=== PATIENT | male | born 1965 | race Caucasian/White ===

== ENCOUNTER 2016-09-29 07:35 | Emergency (ER) | payer OTHER ==
[~2016-09-29] VITALS: Wt 75.0 kg
[2016-09-29] MEDS ORDERED: ONDANSETRON 4 MG INJ IV STA (08:01)
[2016-09-29] MEDS ORDERED: morphine 4 MG/ML VIAL IV STA ×2 (08:01→12:14)
[2016-09-29] MEDS ORDERED: SOD CHLORIDE 0.9% 1,000 ML IV STA (08:01)
--- NOTE | 2016-09-29 08:28 | ERD ---
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 Patient states that he has had a couple episodes of vomiting since this morning as well. He complains of nausea and loose stools. Patient denies any fevers. Patient states that he has not had alcohol for 2 weeks. Patient states that he was recently hospitalized on September 26 at [facility] for exacerbation of chronic pancreatitis last week, patient stayed in the hospital for three days an released on . Patient denies taking any medications today. Patient states that he usually takes Humalog and Lantus for his diabetes however he did not take any today. Patient has a history of cholecystectomy 4 months ago ROS All systems reviewed and are negative except as per history of present illness. Medications Home Meds Active Scripts Ondansetron (Ondansetron Odt) 4 Mg Tab.rapdis, 4 MG PO Q6H Y for NAUSEA AND/OR VOMITING, #14 TAB Prov:VIDAL HOLGUIN PA-C 09/29/16 Naproxen* (Naproxen*) 500 Mg Tablet, 500 MG PO BID Y for PAIN, #20 TAB Prov:VIDAL HOLGUIN PA-C 09/29/16 Famotidine* (Famotidine*) 20 Mg Tablet, 20 MG PO BID, #60 TAB Prov:VIDAL HOLGUIN PA-C 09/29/16 Calcium Carbonate/Simethicone (Maalox Advanced Tab Chew) 1 Each Tab.chew, 1 EACH PO BID, #30 TAB.CHEW Prov:VIDAL HOLGUIN PA-C 09/29/16 Physical Exam Vitals Vital Signs Date Time Temp Pulse Resp B/P Pulse Ox O2 Delivery O2 Flow Rate FiO2 09/29/16 12:26 98.0 78 20 140/89 99 Room Air 09/29/16 07:45 98.0 98 20 136/92 98 Physical Exam GENERAL: well-developed/well-nourished, in no apparent distress, non-toxic appearing HENT: NC/AT, moist mucous membranes EYES: Conjunctiva normal NECK: Supple, no lymphadenopathy PULM: CTA bilaterally, no rales, rhonchi, or wheezing heard CV: Normal S1S2, RRR, good capillary refill GI: Soft, non-distended, tender to palpation in epigastric region and right upper quadrant Normal bowel sounds, no masses or organomegaly felt on exam No gross peritonitis, no bruits Negative Rovsing, negative Gallo, negative McBurney's point, Negative CVAT BACK: No masses EXT: No clubbing, cyanosis, or edema NEURO: Alert and Orientated SKIN: Intact, normal turgor PSYCH: Normal mood and mentation Result Diagram: 09/29/1682409/29/1625 Results 24 hrs Laboratory Tests Test 09/29/16 08:25 09/29/16 10:05 09/29/16 10:36 09/29/16 12:33 Alanine Aminotransferase (ALT/SGPT) 127IU/L Albumin 4.8g/dl Albumin/Globulin Ratio 1.09 Alkaline Phosphatase 803IU/L Anion Gap 21 Aspartate Amino Transf (AST/SGOT) 153IU/L Basophils # 0.110^3/ul Basophils % 0.9% Blood Morphology Comment Blood Urea Nitrogen 14mg/dl Calcium Level 10.4mg/dl Carbon Dioxide Level 28mmol/L Chloride Level 98mmol/L Creatinine 1.36mg/dl Direct Bilirubin 0.00mg/dl Eosinophils # 0.210^3/ul Eosinophils % 3.2% Globulin 4.40g/dl Glucose Level 366mg/dl Hematocrit 39.6% Hemoglobin 13.4g/dl Indirect Bilirubin 0.6mg/dl Lipase < 10U/L Lymphocytes # 0.810^3/ul Lymphocytes % 10.7% Mean Corpuscular Hemoglobin 33.0pg Mean Corpuscular Hemoglobin Concent 33.8g/dl Mean Corpuscular Volume 97.5fl Mean Platelet Volume 9.8fl Monocytes # 0.310^3/ul Monocytes % 4.5% Neutrophils # 6.210^3/ul Neutrophils % 80.7% Nucleated Red Blood Cells # 0.010^3/ul Nucleated Red Blood Cells % 0.0/100WBC Platelet Count 70224^3/UL Potassium Level 4.5mmol/L Red Blood Count 4.0610^6/ul Red Cell Distribution Width 14.6% Sodium Level 142mmol/L Total Bilirubin 0.6mg/dl Total Protein 9.2g/dl White Blood Count 7.610^3/ul Urine Bilirubin NEGATIVE Urine Clarity CLEAR Urine Color LT. YELLOW Urine Glucose >=1000% Urine Hemoglobin NEGATIVE Urine Ketones TRACE Urine Leukocyte Esterase NEGATIVE Urine Nitrite NEGATIVE Urine Specific [place] 1.025 Urine Total Protein NEGATIVE Urine Urobilinogen 0.2 E.U./dL Urine pH 5.5 Bedside Glucose 331mg/dL 332mg/dL Current Medications Medications (Trade) Dose Ordered Sig/Elver Route PRN Reason Start Time Stop Time Status Last Admin Dose Admin Sodium Chloride (NS) 1,000 ml @ 1,000 mls/hr Q1H STAT IV 09/29/16 08:01 09/29/16 09:01 DC 09/29/16 08:25 Morphine Sulfate (morphine) 6 mg ONCE STAT IV 09/29/16 08:01 09/29/16 08:04 DC 09/29/16 08:28 Ondansetron HCl (Zofran Inj) 4 mg ONCE STAT IV 09/29/16 08:01 09/29/16 08:04 DC 09/29/16 08:28 Insulin Aspart (Novolog Insulin Pen) 6 unit ONCE STAT SC 09/29/16 09:02 09/29/16 09:05 DC 09/29/16 09:58 Insulin Glargine (Lantus) 8 unit ONCE STAT SC 09/29/16 10:40 09/29/16 10:41 DC 09/29/16 11:19 Morphine Sulfate (morphine) 4 mg ONCE STAT IV 09/29/16 12:14 09/29/16 12:15 DC Procedures/MDM 50-year-old male with history of DM I with neuropathy, chronic pancreatitis due to alcohol use, cigarette use for 22 years, cholecystectomy 4 month ago presenting to the emergency department complaining of epigastric pain, nausea, vomiting since this morning. Patient denies alcohol use for two weeks. Patient states that he was recently hospitalized on September 26 at [facility] for exacerbation of chronic pancreatitis last week, patient stayed in the hospital for three days an released on . Patient states that he usually takes Humalog and Lantus for his diabetes however he did not take any today. Differentials include but not limited to gastritis, chronic pancreatitis, gastroenteritis. I have a low suspicion for acute pancreatitis, appendicitis, or acute cardiopulmonary conditions due to physical examination and diagnostic testing. On examination, patient did not appear to be toxic appearing, he was mild to moderately tender in the ED, there was no active vomiting. His vitals were stable. IV access was established, Lab work was drawn. CBC did not show any evidence of significant leukocytosis or anemia. CMP showed elevated transaminases, not concerning for admission. Patient's glucose level was 366 however patient did not use his insulin medication today. Patient states that he is normally compliant. Patient was given 6 units of Novolog SC. Re-check of glucose was done and elevated at 330, patient was given his normal Lantus dose of 8 units, it remained elevated at 330 however patient was eating hai crackers hai crackers. Patient states he has insulin at home, I have discussed this case with who states he is able to go home. I have a low suspicion for DKA or HHNK. Lipase was not elevated. Low suspicion for pancreatitis. Patient was given 1 liter of NS fluids, morphine 6mg, and Zofran. I have reassessed patient, he was resting comfortably and fell asleep. Patient was asking for Dilaudid but he was resting comfortably. Patient is suitable to follow-up with his primary care physician with strict precautions to return to the emergency department for any worsening signs or symptoms. I discussed this case with Dr. Calixto, who advised to send patient home with Maalox, naproxen, Zofran, and Pepcid. Patient understands and agrees with this plan Departure Diagnosis: Primary Impression: Abdominal pain Abdominal location: epigastric Qualified Code: R10.13 - Epigastric pain Additional Impression: Elevated transaminase level Condition: VIDAL Jay PA-C Sep 29, 2016 08:28
[2016-09-29 08:47] LABS: BASOPHIL # 0.1 10^3/ul (0.0-0.1); BASOPHILS % 0.9 % (0.0-2.0); EOSINOPHILS # 0.2 10^3/ul (0.0-0.5); EOSINOPHILS % 3.2 % (0.0-7.0); HEMATOCRIT 39.6 % (42.0-52.0); HEMOGLOBIN 13.4 g/dl (14.0-18.0); LYMPHOCYTES # 0.8 10^3/ul (0.8-2.9); LYMPHOCYTES % 10.7 % (15.0-51.0); MEAN CORPUSCULAR HGB CONC 33.8 g/dl (32.0-37.0); MEAN CORPUSCULAR VOLUME 97.5 fl (82.0-101.0); MEAN PLATELET VOLUME 9.8 fl (7.4-10.4); MONOCYTE # 0.3 10^3/ul (0.3-0.9); MONOCYTES % 4.5 % (0.0-11.0); NEUTROPHIL # 6.2 10^3/ul (1.6-7.5); NEUTROPHILS % 80.7 % (39.0-77.0); PLATELET COUNT 216 10^3/UL (140-440); RED BLOOD COUNT 4.06 10^6/ul (4.70-6.10); RED CELL DISTRIBUTION WIDTH 14.6 % (11.5-14.5); UNCORRECTED WBC 7.6 10^3/ul (4.8-10.8); WHITE BLOOD COUNT 7.6 10^3/ul (4.8-10.8)
[2016-09-29 08:49] LABS: CONDITION 1; LH ANALYZER COMMENTS 1
[2016-09-29 08:55] LABS: ALBUMIN 4.8 g/dl (3.3-4.9); CHLORIDE 98 mmol/L (97-110); SODIUM 142 mmol/L (135-144)
[2016-09-29 08:56] LABS: POTASSIUM 4.5 mmol/L (3.5-5.1)
[2016-09-29 08:58] LABS: ALANINE AMINOTRANSFERASE 127 IU/L (13-69); ALBUMIN/GLOBULIN RATIO 1.09; ALKALINE PHOSPHATASE 803 IU/L (42-121); ANION GAP 21 (8-16); ASPARTATE AMINO TRANSFERASE 153 IU/L (15-46); BILIRUBIN,INDIRECT 0.6 mg/dl (0-1.1); BILIRUBIN,TOTAL 0.6 mg/dl (0.2-1.3); BLOOD UREA NITROGEN 14 mg/dl (7-20); CARBON DIOXIDE 28 mmol/L (21-31); CREATININE 1.36 mg/dl (0.61-1.24); GLUCOSE 366 mg/dl (70-220); TOTAL PROTEIN 9.2 g/dl (6.1-8.1)
[2016-09-29 08:59] LABS: CALCIUM 10.4 mg/dl (8.4-10.2)
[2016-09-29] MEDS ORDERED: INSULIN ASPART [NOVOLOG] 3 ML PEN SC STA (09:02)
[2016-09-29] MEDS ORDERED: NAPR-688 PO (09:58)
[2016-09-29] MEDS ORDERED: FAMO20TA18 PO (09:58)
[2016-09-29] MEDS ORDERED: ONDA4TAB14 PO (09:58)
[2016-09-29] MEDS ORDERED: CALC1TAB26 PO (09:58)
[2016-09-29] MEDS ORDERED: INSULIN GLARGINE [LANtus] 3 ML PEN SC STA (10:40)
[2016-09-29 10:45] LABS: ADD UMIC NO; URINE BILIRUBIN (Dip) NEGATIVE (NEGATIVE); URINE BLOOD (Dip) NEGATIVE (NEGATIVE); URINE COLOR LT. YELLOW (YELLOW); URINE GLUCOSE (Dip) >=1000 % (NEGATIVE); URINE KETONES (Dip) TRACE (NEGATIVE); URINE LEUKOCYTE ESTERASE (Dip) NEGATIVE (NEGATIVE); URINE NITRITE (Dip) NEGATIVE (NEGATIVE); URINE TOTAL PROTEIN (Dip) NEGATIVE (NEGATIVE); URINE UROBILINOGEN (Dip) 0.2 E.U./dL (0.1-1.0)
[2016-09-29 12:26] VITALS: BP 140/89; PULSE 78; RESP 20; TEMP 98
== END 2016-09-29 12:37 | disposition home or self-care (01) ==
LOC: FTE 07:35
DX: R10.13 Epigastric pain (principal); R74.0 Nonspecific elevation of levels of transaminase and lactic acid dehydrogenase [LDH]; E10.9 Type 1 diabetes mellitus without complications; F17.210 Nicotine dependence, cigarettes, uncomplicated; R11.2 Nausea with vomiting, unspecified; I10 Essential (primary) hypertension
CPT/HCPCS: 36415; 80053; 81003; 82962; 83690; 85025; 96372; 96374; 96375; J1815; J2270; J2405; J7030; Z7502